=== PATIENT | male | born 1970 | race African-American/Black ===

== ENCOUNTER 2023-07-20 09:58 | Emergency (ER) | payer MEDICAID, OTHER ==
[~2023-07-20] VITALS: Ht 177.8 cm; Wt 73.0 kg
[2023-07-20 10:04] VITALS: O2SAT 99
[2023-07-20] MEDS: LIDOCAINE HCL/PF 1% 10 MG/ML 5ML VIAL INFIL ONE (10:55)
[2023-07-20] MEDS ORDERED: CIPR750T4 MT (10:57)
[2023-07-20 11:06] VITALS: BP 144/88; PULSE 69; RESP 18; TEMP 98.7
== END 2023-07-20 11:15 | disposition home or self-care (01) ==
LOC: ER 09:58
DX: H66.42 Suppurative otitis media, unspecified, left ear (principal)
CPT/HCPCS: 10061; 99284; J3490; Z7610 ×2; 10060; 99283

== ENCOUNTER 2023-07-23 09:35 | Emergency (ER) | payer MEDICAID, OTHER ==
[~2023-07-23] VITALS: Ht 180.3 cm; Wt 75.0 kg
[~2023-07-23 09:35] MED LIST: CIPR750T4 MT
[2023-07-23 09:44] VITALS: O2SAT 98
[2023-07-23] MEDS ORDERED: NEOM28.37 TP (11:06)
[2023-07-23] MEDS ORDERED: GENT30OI2 TP (11:08)
[2023-07-23 11:29] VITALS: BP 138/64; PULSE 70; RESP 16; TEMP 98.1
== END 2023-07-23 11:30 | disposition home or self-care (01) ==
LOC: ER 09:35
DX: Z48.00 Encounter for change or removal of nonsurgical wound dressing (principal)
CPT/HCPCS: 99283

== ENCOUNTER 2024-04-19 18:05 | Emergency (ER) | payer MEDICAID ==
[~2024-04-19] VITALS: Ht 175.3 cm; Wt 65.0 kg
[~2024-04-19 18:05] MED LIST changes: +GENT30OI2 TP
[2024-04-19 18:17] VITALS: O2SAT 96
[2024-04-19 18:19] VITALS: BP 116/56; PULSE 95; RESP 18; TEMP 98.2; O2SAT 99
[2024-04-19 20:55] LABS: CHLORIDE 110 mEq/L (98-107); SODIUM 144 mEq/L (136-145)
[2024-04-19 20:56] LABS: CALCIUM 9.7 mg/dL (8.7-10.4); CARBON DIOXIDE 27 mEq/L (21-32)
[2024-04-19 20:57] LABS: BASOPHILS % 0.7 % (0.0-2.0); EOSINOPHILS % 1.5 % (0.0-5.0); HEMATOCRIT. 34.8 % (42.0-52.0); HEMOGLOBIN. 11.6 g/dL (14.0-18.0); LYMPHOCYTES % 21.3 % (20.0-50.0); MEAN CORPUSCULAR HEMOGLOBIN 31.9 pg (28.0-32.0); MEAN CORPUSCULAR HGB CONC 33.2 g/dL (31.0-37.0); MEAN CORPUSCULAR VOLUME 96.1 fL (80.0-94.0); MEAN PLATELET VOLUME 6.5 fl (7.4-10.4); MONOCYTES % 5.4 % (2.0-8.0); NEUTROPHILS % 71.1 % (40.0-76.0); PLATELET 434 x1000/uL (130-400); RED BLOOD CELL COUNT 3.62 mill/uL (4.7-6.1); RED CELL DISTRIBUTION WIDTH 14.2 % (11.6-14.6); WHITE BLOOD COUNT 7.6 x1000/uL (4.5-11.0)
[2024-04-19 21:01] LABS: CREATININE 1.1 mg/dL (0.6-1.3); GLUCOSE 76 mg/dL (70-105); UREA NITROGEN BLOOD 12 mg/dL (9-23)
[2024-04-19 21:02] LABS: TROPONIN I HIGH SENSITIVITY 6 ng/L (3.0-53)
[2024-04-20] MEDS ORDERED: ACET-2708 MT (00:11)
== END 2024-04-20 00:35 | disposition home or self-care (01) ==
LOC: ER 18:05
DX: G62.9 Polyneuropathy, unspecified (principal)
CPT/HCPCS: 36415; 71045; 80048; 84484; 85025; 93005; 99285

== ENCOUNTER 2025-08-16 11:53 | Emergency (ER) | payer MEDICAID ==
[~2025-08-16] VITALS: Ht 182.9 cm; Wt 79.0 kg
[~2025-08-16 11:53] MED LIST changes: +ACET-2708 MT
[2025-08-16 12:27] VITALS: O2SAT 98
[2025-08-16 14:47] LABS: BASOPHILS % 1.2 % (0.0-2.0); EOSINOPHILS % 4.7 % (0.0-5.0); HEMATOCRIT. 32.9 % (42.0-52.0); HEMOGLOBIN. 11.3 g/dL (14.0-18.0); LYMPHOCYTES % 34.0 % (20.0-50.0); MEAN PLATELET VOLUME 6.6 fl (7.4-10.4); MONOCYTES % 9.0 % (2.0-8.0); NEUTROPHILS % 51.1 % (40.0-76.0); PLATELET 422 x1000/uL (130-400); RED BLOOD CELL COUNT 3.46 mill/uL (4.7-6.1); RED CELL DISTRIBUTION WIDTH 13.4 % (11.6-14.6)
[2025-08-16 14:51] LABS: CREATININE 1.0 mg/dL (0.6-1.3); UREA NITROGEN BLOOD 10 mg/dL (9-23)
[2025-08-16] MEDS ORDERED: AMOX1TAB16 MT (16:37)
[2025-08-16 16:56] VITALS: BP 102/58; PULSE 90; RESP 18; TEMP 36.7; O2SAT 98
[2025-08-16] MEDS ORDERED: IOHEXOL-300 100 ML BOTTLE ONE (22:33)
== END 2025-08-16 17:00 | disposition home or self-care (01) ==
LOC: ER 11:53
DX: H66.91 Otitis media, unspecified, right ear (principal)
CPT/HCPCS: 80048; 85025; 36415; 70487; 99285; Q9967; Z7610 ×2